=== PATIENT | female | born 1930 | race Caucasian/White ===

== ENCOUNTER 2017-03-30 04:38 | Emergency (ER) | payer MEDICARE ==
[~2017-03-30] VITALS: Ht 152.4 cm; Wt 59.0 kg
[~2017-03-30 04:38] MED LIST: ALBU4 PO; ALBU90OI INH; ALLO100 PO; ASPI81CH PO; ASPI81EC PO; ATEN25 PO; ATEN50 PO; AZIT250 PO; Aspercreme 1035.4 GM TOP; BENADRYL25 MG PO; Bystolic2.5 MG PO; CINNAMIN; CIPR500 PO; CLOP75 PO; CODACE30 PO; CODACE60 PO; DIPH50 PO; DOCU100 PO; FISH1000 PO; FLUSAL2505 INH; FLUT.05NI; FURO40 PO; GAS X; GUAI200 PO; INSULANI SC; INSULANI SUBQ; INSULANPEN SC; LISHYD1012 PO; LISI10 PO; LISI20 PO; LISI5 PO; LORA.5 PO; LORA.5 SL; LOSA25 PO; METANX CAPSULE1 EACH PO; MOMENI; MULVITMINE PO; Monodox100 MG PO; Mucus Relief400 MG PO; NEBI5 PO; OMEP20ER PO; OXYACE5T PO; OXYC5 PO; PROACE100 PO; PROM25S PR; SERT100 PO; SERT25 PO; SERT50 PO; SPIR25 PO; SULTRIDS PO; THYR60 PO; TORSE20 PO; TRIE10TC TOP; TRIHYD253A PO; UBID100 PO; Ventolin Soln3 ML INH; Vitamin D2000 UNIT PO; [UNRECOGNIZED DRUG - OTHER]
[2017-03-30] MEDS ORDERED: Cyclobenzaprine5 MG PO (06:23)
[2018-02-01] MEDS ORDERED: SCOPOLAMINE1 EACH TOP (14:47)
[2018-02-01] MEDS ORDERED: MORP20L SL (14:48)
== END 2017-03-30 06:35 | disposition home or self-care (01) ==
LOC: ER 04:38
DX: M25.511 Pain in right shoulder (principal); G89.29 Other chronic pain; I10 Essential (primary) hypertension; E11.9 Type 2 diabetes mellitus without complications; Z88.8 Allergy status to other drugs, medicaments and biological substances; Z88.6 Allergy status to analgesic agent; Z79.899 Other long term (current) drug therapy; Z79.82 Long term (current) use of aspirin; Z79.4 Long term (current) use of insulin; Z90.89 Acquired absence of other organs; Z90.49 Acquired absence of other specified parts of digestive tract; Z87.891 Personal history of nicotine dependence
CPT/HCPCS: 29105; 99282

== ENCOUNTER → 2017-06-10 | Outpatient (CLI) | payer MEDICARE ==
[~2017-06-10] MED LIST changes: +Cyclobenzaprine5 MG PO; +MORP20L SL; +SCOPOLAMINE1 EACH TOP
== END ==
LOC: LAB 17:54
DX: J34.89 Other specified disorders of nose and nasal sinuses (principal)
CPT/HCPCS: 87070

== ENCOUNTER 2017-07-18 20:05 | Emergency (ER) | payer MEDICARE ==
[~2017-07-18] VITALS: Ht 152.4 cm; Wt 56.7 kg
[~2017-07-18 20:05] MED LIST changes: -Aspercreme 1035.4 GM TOP; -LORA.5 SL; -MORP20L SL; -SCOPOLAMINE1 EACH TOP
== END 2017-07-18 21:38 | disposition home or self-care (01) ==
LOC: ER 20:05
DX: R09.89 Other specified symptoms and signs involving the circulatory and respiratory systems (principal); I10 Essential (primary) hypertension; E11.9 Type 2 diabetes mellitus without complications; Z88.8 Allergy status to other drugs, medicaments and biological substances; Z88.6 Allergy status to analgesic agent; Z79.899 Other long term (current) drug therapy; Z79.82 Long term (current) use of aspirin; Z87.891 Personal history of nicotine dependence
CPT/HCPCS: 71046; 99283

== ENCOUNTER 2017-11-09 12:14 | Emergency (ER) | payer MEDICARE ==
[~2017-11-09] VITALS: Ht 167.6 cm; Wt 77.1 kg
== END 2017-11-09 14:33 | disposition home or self-care (01) ==
LOC: ER 12:14
DX: G89.29 Other chronic pain (principal); R10.11 Right upper quadrant pain; R10.12 Left upper quadrant pain; R51 Headache; G25.5 Other chorea; G70.00 Myasthenia gravis without (acute) exacerbation; I10 Essential (primary) hypertension; E11.9 Type 2 diabetes mellitus without complications; Z88.8 Allergy status to other drugs, medicaments and biological substances; Z88.6 Allergy status to analgesic agent; Z79.82 Long term (current) use of aspirin; Z79.899 Other long term (current) drug therapy; Z79.4 Long term (current) use of insulin; Z87.891 Personal history of nicotine dependence
CPT/HCPCS: 96374; 99284-25; J1170